=== PATIENT | male | born 1955 | race American Indian/Alaskan Native ===

== ENCOUNTER 2018-11-26 05:45 | Day surgery (SDC) | payer OTHER ==
[2018-11-26] MEDS ORDERED: TYLENOL PO ONE (06:00)
[2018-11-26] MEDS ORDERED: FLEET PR ONE (06:00)
[2018-11-26] MEDS ORDERED: NEURONTIN PO SCH (06:00)
[2018-11-26] MEDS ORDERED: LACTATED RINGERS 1,000 ML IV SCH (06:00)
[2018-11-26] MEDS ORDERED: ANCEF/STERILE WATER 2 GM/20 ML 2 GM/20 ML SYRINGE IV NR (06:00)
[2018-11-26] MEDS ORDERED: MARCAINE 0.25% INFILTRATI ONE (06:54)
[2018-11-26] MEDS ORDERED: XYLOCAINE 1%/ EPI 1:100,000 INFILTRATI ONE (06:54)
--- NOTE | 2018-11-26 06:58 | Short Stay Summary ---
Short Stay Documentation Date of service: 11/26/18 - History H&P: obtained from office - Allergies and Medications Current Medications: Allergies No Known Allergies Allergy (Verified 11/25/18 12:05) Home Medications Medication Instructions Recorded Confirmed Last Taken Type No Known Home Medications [No 11/25/18 11/25/18 Unknown History Reported Home Medications] Active Medications Celecoxib (Celebrex) 200 mg PO PREOP NR Stop: 11/26/18 23:00 Last Admin: 11/26/18 06:20 Dose: 200 mg Documented by: Gabapentin (Neurontin) 900 mg PO PREOP DALLIN Last Admin: 11/26/18 06:22 Dose: 900 mg Documented by: Lactated Ringer's (Lactated Ringers) 1,000 mls @ 75 mls/hr IV DIRECT DALLIN Last Admin: 11/26/18 06:24 Dose: 75 mls/hr Documented by: Cefazolin Sodium (Ancef/Sterile Water 2 Gm/20 Ml) 2 gm in 20 mls @ 80 mls/hr IV PREOP NR; Protocol Stop: 11/26/18 18:00 - Physical exam General appearance: no acute distress HEENT: Atraumatic Lungs: Normal air movement Neurological: Normal speech - Brief post op/procedure progress note Date of procedure: 11/26/18 (dictation:[id number]) Pre-op diagnosis: anorectal fistulae; left buttock chronic wound Post-op diagnosis: same Procedure: EUA removal of setons x 2 I&D with debridement of left buttock wound Left Pudendal nerve block IVF 1150 EBL min Anesthesia: GETA Findings: chronic, noninfected anorectal tracts chronic left buttock wound that did not extend to anal canal Surgeon: SKY ALBARRAN Estimated blood loss: minimal Pathology: none Condition: stable - Hospital course Hospital course: uneventful - Disposition Condition at discharge: Stable Disposition: DC-01 TO HOME OR SELFCARE Short Stay Discharge Plan Diet: regular Wound: open to air, keep clean and dry Special Instructions: no heavy lifting Additional Instructions: Post Operative Instructions No driving until cleared by surgeon. May shower tomorrow. Pat dry the wound or wounds. After surgery, start with a light diet. Consider having a liquid diet first. If you do well, you can advance to a regular diet as you feel comfortable. Do Sitz baths after every bowel movement. Sit in tub of warm water for 10-15min. Use the Sitz baths at least 3 times a day. You can do more if you like. Alternate the use of ibuprofen and Tylenol for the first 2 days. I want you to take these on a scheduled basis. Take 600 mg of ibuprofen every 6 hours. Take 500 mg of Tylenol every 6 hours. You should alternate these 2 medicines. In other words, beginning with the ibuprofen. After 3 hours, take the Tylenol. Keep alternating the 2 drugs every 3 hours. Do this on a scheduled basis for the first 2 days. After that, you can take them as needed. It is very important that you use the prescription pain medicine only for very severe pain. DO NOT TAKE THE PRESCRIPTION MEDICATION BEFORE YOU TRY USING THE IBUPROFEN AND TYLENOL. We will call you in a couple of days to see how youre doing. If you have any questions or concerns, always feel free to call the clinic at any time. SEEK CARE IMMEDIATELY ( by calling 911 ) For Chest pain or trouble breathing all of a sudden. This could be a sign of a blood clot in your lungs or an allergic reaction . DO NOT DRINK ALCOHOL, MAKE LEGAL DECISIONS, COOK OR OPERATE HEAVY MACHINERY FOR 24 HOURS . A responsible adult should remain with you today. Rest for the remainder of the day Follow up with: [facility] [Primary Care Provider] - 7 Days KSY ALBARRAN MD [Staff Physician] - 14 Days Prescriptions: oxyCODONE /ACETAMINOPHEN [Percocet 5/325 mg] 1 tab PO Q6HR PRN #40 tablet PRN Reason: Pain , Severe (7-10)
[2018-11-26] MEDS ORDERED: DIPRIVAN 10 MG/ML IV ONE (07:07)
[2018-11-26] MEDS ORDERED: XYLOCAINE MPF 2% ONE (07:07)
[2018-11-26] MEDS ORDERED: SUBLIMAZE ONE (07:07)
[2018-11-26] MEDS ORDERED: ZEMURON IV ONE (07:07)
--- NOTE | 2018-11-26 07:09 | Anesthesia Day of Surgery ---
Anesthesia Day of Surgery - Day of Surgery Patient Examined: Yes Patient H&P Reviewed: Yes Patient is NPO: Yes
--- NOTE | 2018-11-26 07:10 | Anesthesia Consultation ---
Anesthesia Consult and Med Hx Date of service: 11/26/18 - Airway Anesthetic Teeth Evaluation: Poor, Chipped ROM Head & Neck: Adequate Mental/Hyoid Distance: Adequate Mallampati Class: Class II Intubation Access Assessment: Good - Pre-Operative Health Status ASA Pre-Surgery Classification: ASA2 Proposed Anesthetic Plan: General - Pulmonary Hx Smoking: Yes (FOR 10 YRS ON/OFF; QUIT 2017; [facility]) - Central Nervous System Hx Psychiatric Problems: No - Endocrine Hx Liver Disease: Yes (Hepatitis B and C) - Other Systems Hx Alcohol Use: Yes Hx Substance Use: Yes (MARIJUANA)
[2018-11-26] MEDS ORDERED: ZOFRAN IV PRN (07:12)
[2018-11-26] MEDS ORDERED: SUBLIMAZE IV PRN (07:12)
[2018-11-26] MEDS ORDERED: MARCAINE 0.5% INFILTRATI ONE ×3 (08:01→08:10)
[2018-11-26] MEDS ORDERED: NACL 0.9% IR ONE (08:10)
[2018-11-26] MEDS ORDERED: QUELICIN ONE (08:12)
[2018-11-26] MEDS ORDERED: ROBINUL ONE (08:19)
[2018-11-26] MEDS ORDERED: ZOFRAN ONE (08:19)
[2018-11-26] MEDS ORDERED: BLOXIVERZ ONE (08:19)
[2018-11-26] MEDS ORDERED: PROVENTIL IH ONE (09:06)
[2018-11-26] MEDS ORDERED: PROVENTIL IH SCH (09:30)
[2018-11-26 10:45] VITALS: BP 126/88
--- NOTE | 2018-11-26 17:31 | Post Anesthesia Evaluation ---
- Post Anesthesia Evaluation Patient Participated: Yes Airway Patent: Yes Stable Respiratory Function: Yes Nausea/Vomiting: No Temp > 96.8F: Yes Pain Manageable: Yes Adequeate Hydration: Yes Anesthesia Complications: No Block Receding Appropriately: Not Applicable Patient on Ventilator: No
--- NOTE | 2018-11-27 22:41 | Operative Report ---
PREOPERATIVE DIAGNOSES: 1. History of anorectal fistulae. 2. Left buttock chronic wound. POSTOPERATIVE DIAGNOSES: 1. History of anorectal fistulae. 2. Left buttock chronic wound. PROCEDURES: 1. Exam under anesthesia. 2. Removal of two Setons. 3. Incision, drainage and debridement of left buttock chronic wound. 4. Left pudendal nerve block. ATTENDING PHYSICIAN: Roz Du MD ANESTHESIA: General. ESTIMATED BLOOD LOSS: Minimal. FLUIDS: 1150 mL. FINDINGS: The patient had only [address] The patient thought that there was a third at the 12 o'clock position. It looked very carefully and did not see it. Part of the Seton was lying in that area, so that perhaps was his sensation. The chronic wound, I think partially closed tract from the anorectum. The distal portion was still open and had chronic inflammatory tissue. No other findings were seen. SPECIMENS: None. COMPLICATIONS: None. DISPOSITION: Stable, transferred to Recovery. INDICATIONS: This is a 63-year-old male who approximately 8-9 years ago had Setons placed for anorectal fistulae. However, he was not able to follow up with his surgeon at the [place] and ultimately nothing done with these Setons. He now presents for evaluation and management. The patient was assessed to be in need for exam under anesthesia to get a better overall assessment of the anatomy and what has been done. Procedure, risks and benefits were explained to the patient. Risks include but are not limited to infection, bleeding, pain, injury to surrounding structures, possible need for further procedures in the future. The patient understood and consented. OPERATIVE NOTE: The patient was brought to the operating room and placed on the table in supine position. After adequate general anesthesia was established, the patient was placed in the prone jackknife position. We made sure that all the pressure points were padded. We made sure the genitals were lying in the appropriate position. The buttocks were taped laterally to expose the anus. A sterile prep and drape was performed. The SCDs were placed and antibiotics have been given. Timeout was called. I began by assessing the chronic wound. I probed with a lacrimal probe. It was heading towards the anorectum but did not go all the way. It stopped about half way to the anorectum. I think the proximal portion may have already scarred down, but the distal portion was left open to develop chronic inflammatory tissue and that explains his chronic drainage. This area was away from the general vicinity where I would do a pudendal block, so I went ahead and performed a pudendal block with 0.5% Marcaine. I identified the ischial tuberosity and spine. Using my finger as a guide, I aimed the needle towards the tuberosity/spine region. I aspirated as I went. There was no blood return. I injected 10 mL of local. I then turned my attention to the anal exam. Anoscope was inserted. I did a full evaluation. The patient did have some mild to moderate hemorrhoids circumferentially, but no other problems were noted. There was no purulent drainage coming from either of the tracts where the Seton was located. I saw no inflammatory tissue. No erythema. No induration. The tract had pretty much closed down around the Seton. The Seton seemed to be fairly superficial at this point. There was not much skin left between the Seton and the surface. I considered perhaps just tightening the Seton but I was not sure, so many years out whether it would still be beneficial, as there is no drainage, as there were no signs of any chronic inflammation or infection. I elected to just excise both of them and I explained this to the afterwards. As for the chronic wound, I probed it as mentioned with the lacrimal probe in the direction of the residual tract I opened the skin. This too seemed to be very superficial. I did not feel I was at risk to go deep into the sphincter, so I slowly incised the skin, taking care to carefully watch it, in case I did see any muscle fibers; however, there were none. I completely opened up the tract. There was chronic inflammatory tissue, which I used a curette to completely remove. Hemostasis was achieved with electrocautery and then I packed it with Surgicel. Surgifoam was covered with lubricant and then inserted into the anus to provide additional compression to that area. The skin was cleaned and dried. ABD and mesh underwear were placed. The patient tolerated the procedure well. There were no complications. All counts were correct at the end of the case. JOB# [id number] KASANDRA/SANDRA CERNA
== END 2018-11-26 10:25 | disposition home or self-care (01) ==
LOC: OR 05:45
PROVIDERS: ATTEND Surgery
DX: S31.829A Unspecified open wound of left buttock, initial encounter (principal); K60.5 Anorectal fistula; Z79.899 Other long term (current) drug therapy; Z87.891 Personal history of nicotine dependence; Z72.89 Other problems related to lifestyle; Z98.890 Other specified postprocedural states; X58.XXXA Exposure to other specified factors, initial encounter; Y93.89 Activity, other specified; Y92.89 Other specified places as the place of occurrence of the external cause; Y99.8 Other external cause status
CPT/HCPCS: 11042; 46030; 64430; 88300; J0330; J0690; J2405; J2704; J2710; J3010; J7120; 88304

== ENCOUNTER 2021-07-25 12:26 | Emergency (ER) | payer MEDICARE, OTHER ==
--- NOTE | 2021-07-25 13:52 | Event Note ---
ED Screening Note ED Screening Note: CO DIFFUSE ABD PAIN AND BLACK STOOL AND PAIN L FOOT (NEEDS EVAL IN ROOM) DAILY DRINKER [facility] DENIES [facility] RECTAL FISTULA SURGERY BROKE FOOT - RIGHT 2.5 M AGO L FOOT FX 3 W AGO [facility] DENIES DAILY MEDS POOR INFORMANT This initial assessment/diagnostic orders/clinical plan/treatment(s) is/are subject to change based on patients health status, clinical progression and re- assessment by fellow clinical providers in the ED. Further treatment and workup at subsequent clinical providers discretion. Patient/guardian urged not to elope from the ED as their condition may be serious if not clinically assessed and managed. Initial orders include: GIB W/U
[2021-07-25] MEDS ORDERED: SODIUM CHLORIDE 0.9% 1000 ML 1,000 ML IV ONE (14:18)
[2021-07-25] MEDS ORDERED: MORPHINE 4 MG/1 ML INJ IV ONE (14:18)
[2021-07-25] MEDS ORDERED: PANTOPRAZOLE 40 MG INJ IV ONE (14:18)
[2021-07-25] MEDS ORDERED: ONDANSETRON 4 MG/2 ML INJ IV ONE (14:18)
--- NOTE | 2021-07-25 14:22 | Emergency Department Report ---
ED Abdominal Pain HPI - General Chief Complaint: Abdominal Pain Stated Complaint: STOMACH PAIN Time Seen by Provider: 07/25/21 13:49 Source: patient - History of Present Illness Initial Comments: Patient is 65 years old male with history of diabetes, chronic alcohol abuse. Patient presented to the ER complaining of epigastric abdominal pain, radiated to his back. Patient stated that pain started 7 days ago. Patient stated the pain is sharp and associated with nausea vomiting and diarrhea. Patient denied any fever or chills. Patient stated that he drink beers daily. MD Complaint: abdominal pain -: days(s) (7) Location: epigastric Radiation: back Severity: moderate Severity scale (0 -10): 6 Quality: sharp Consistency: constant Associated Symptoms: nausea, vomiting, diarrhea - Related Data Previous Rx's Medication Instructions Recorded Last Taken Type oxyCODONE /ACETAMINOPHEN [Percocet 1 tab PO Q6HR PRN #40 tablet 11/26/18 Unknown Rx 5/325 mg] Allergies Allergy/AdvReac Type Severity Reaction Status Date / Time No Known Allergies Allergy Verified 11/25/18 12:05 ED Review of Systems ROS: Stated complaint: STOMACH PAIN Other details as noted in HPI Comment: All other systems reviewed and negative Constitutional: denies: chills, fever Respiratory: denies: cough, shortness of breath, SOB with exertion, SOB at rest Cardiovascular: denies: chest pain Gastrointestinal: abdominal pain, nausea, vomiting, diarrhea. denies: constipation, hematemesis, melena, hematochezia Musculoskeletal: denies: back pain Neurological: denies: headache, weakness, numbness, paresthesias, confusion ED Past Medical Hx - Past Medical History Hx Liver Disease: Yes (Hepatitis B and C) Hx HIV: No - Social History Smoking Status: Former Smoker - Medications Home Medications: Home Medications Medication Instructions Recorded Confirmed Last Taken Type oxyCODONE /ACETAMINOPHEN [Percocet 1 tab PO Q6HR PRN #40 tablet 11/26/18 Unknown Rx 5/325 mg] ED Physical Exam - General General appearance: alert, in no apparent distress - Head Head exam: Present: atraumatic, normocephalic, normal inspection - Eye Eye exam: Present: normal appearance, PERRL - ENT ENT exam: Present: normal exam, normal orophraynx, mucous membranes dry - Neck Neck exam: Present: normal inspection, full ROM. Absent: tenderness, meningismus - Respiratory Respiratory exam: Present: normal lung sounds bilaterally - Cardiovascular Cardiovascular Exam: Present: regular rate, normal rhythm, normal heart sounds - GI/Abdominal GI/Abdominal exam: Present: soft, tenderness, normal bowel sounds. Absent: distended, guarding, rebound, rigid, organomegaly, mass, bruit, pulsatile mass, hernia - Extremities Exam Extremities exam: Present: normal inspection, full ROM, normal capillary refill. Absent: tenderness - Back Exam Back exam: Present: normal inspection, full ROM. Absent: CVA tenderness (R), CVA tenderness (L) - Neurological Exam Neurological exam: Present: alert, oriented X3, CN II-XII intact, normal gait, reflexes normal. Absent: motor sensory deficit - Psychiatric Psychiatric exam: Present: normal mood - Skin Skin exam: Present: warm, intact, normal color ED Medical Decision Making - Lab Data Result diagrams: 07/25/21 14:25 07/25/21 14:25 - Radiology Data Radiology results: report reviewed - Medical Decision Making Patient is 65 years old male with history of diabetes, chronic alcohol abuse. Patient presented to the ER complaining of epigastric abdominal pain, radiated to his back. Patient stated that pain started 7 days ago. Patient stated the pain is sharp and associated with nausea vomiting and diarrhea. Patient denied any fever or chills. Patient stated that he drink beers daily. Patient received morphine, Zofran and Protonix. Patient stated that he is feeling much better. Labs reviewed and is unremarkable except for slightly elevated lipase level. CT abdomen and pelvis with IV contrast is unremarkable for acute finding. Patient symptoms most likely related to alcoholic gastritis however patient strongly advised to follow-up with his primary doctor for further management. Patient counseled about alcohol abuse. Patient advised to return to the ER if he develop any new symptoms. Critical care attestation.: If time is entered above; I have spent that time in minutes in the direct care of this critically ill patient, excluding procedure time. ED Disposition Clinical Impression: Acute abdominal pain, Alcoholic gastritis Disposition: HOME / SELF CARE / HOMELESS Is pt being admited?: No Condition: Stable Instructions: Gastritis, Adult, Abdominal Pain, Adult, Acute Pancreatitis, [id number] [facility]errals: [facility] [Other] - 3-5 Days
[2021-07-25 14:49] LABS: Basophils % (Auto) 0.3 % (0.0-1.8); Eosinophils # (Auto) 0.2 K/mm3 (0.0-0.4); Eosinophils % (Auto) 2.6 % (0.0-4.3); Hematocrit 40.2 % (35.5-45.6); Hemoglobin 13.8 gm/dl (11.8-15.2); Lymphocytes # (Auto) 2.3 K/mm3 (1.2-5.4); Mean Corpuscular HGB Conc 34 % (32-34); Mean Corpuscular Volume 109 fl (84-94); Monocytes # (Auto) 0.6 K/mm3 (0.0-0.8); Monocytes % (Auto) 8.5 % (0.0-7.3); Platelet Count 108 K/mm3 (140-440); Red Blood Count 3.67 M/mm3 (3.65-5.03)
[2021-07-25 15:00] LABS: INR 1.16 (0.87-1.13)
[2021-07-25 15:01] LABS: Alanine Aminotransferase 101 units/L (7-56); Albumin 3.8 g/dL (3.9-5); Bilirubin,Direct 0.4 mg/dL (0-0.2); Blood Urea Nitrogen 9 mg/dL (9-20); Calcium 8.3 mg/dL (8.4-10.2); Hemolysis Index 34
[2021-07-25 15:09] LABS: BUN/Creatinine Ratio 13
[2021-07-25 18:31] VITALS: BP 149/89
[2021-07-25 22:18] LABS: Mucus,Urine FEW /HPF; RBC,Urine < 1.0 /HPF (0.0-6.0)
[2021-07-25 22:47] LABS: Amphetamine Screen,Urine PRESUMPTIVE NEGATIVE; Benzodiazepines Screen,Urine PRESUMPTIVE NEGATIVE; Cannabinoid Screen,Urine PRESUMPTIVE POSITIVE; Cocaine Screen,Urine PRESUMPTIVE NEGATIVE; Methadone Screen,Urine PRESUMPTIVE NEGATIVE; Opiate Screen,Urine PRESUMPTIVE NEGATIVE
[2021-07-25 23:01] LABS: Color,Urine Yellow (Yellow)
[2021-07-25 23:02] LABS: Bilirubin,Urine Negative (Negative); Blood,Urine Negative (Negative)
--- NOTE | 2021-07-25 23:53 | Cat Scan Report ---
CT ABDOMEN AND PELVIS WITH CONTRAST INDICATION / CLINICAL INFORMATION: abdominal pain. TECHNIQUE: Axial CT images were obtained through the abdomen and pelvis after 100 cc of Omnipaque [address] scans at this location are performed using CT dose reduction for ALARA by means of automated exposure control. COMPARISON: None available. FINDINGS: LOWER CHEST: No significant abnormality. AORTA / ARTERIES: No significant abnormality. IVC / VEINS: No significant abnormality. LYMPH NODES: No significant adenopathy. COLON: No significant abnormality. APPENDIX: No significant abnormality. STOMACH / SMALL BOWEL: No significant abnormality. PERITONEUM: No free fluid. No free air. No fluid collection. LIVER: Decreased attenuation of the liver suggesting hepatic steatosis. GALLBLADDER: No significant abnormality. BILE DUCTS: No significant abnormality. PANCREAS: No significant abnormality. SPLEEN: No significant abnormality. ADRENALS: No significant abnormality. RIGHT KIDNEY / URETER: Subcentimeter hypoattenuating lesion likely representing renal cysts. No hydro nephrosis. LEFT KIDNEY / URETER: Centimeter hypoattenuating lesions likely representing renal cysts. No hydronep hrosis. URINARY BLADDER: No significant abnormality. REPRODUCTIVE ORGANS: No significant abnormality. SKELETAL SYSTEM: Scattered degeneration. ADDITIONAL FINDINGS: None. IMPRESSION: 1. No CT findings to explain symptomatology. 2. Other findings as above Signer Name: Edwin Olson DO Signed: 07/25/2021 5:41 PM Workstation Name: [id number]
== END 2021-07-25 18:32 | disposition home or self-care (01) ==
LOC: ED 12:26
DX: R10.9 Unspecified abdominal pain (principal); K29.20 Alcoholic gastritis without bleeding; Z87.891 Personal history of nicotine dependence; Z79.899 Other long term (current) drug therapy
CPT/HCPCS: 36415; 74177; 80048; 80076; 80307; 81001; 82140; 82150; 83690; 85025; 85610; 96361; 96374; 96375; 99284; C9113; J2270; J2405; J7030; Q9967; 80320; Q0162; G0480

== ENCOUNTER 2021-10-20 11:05 | Emergency (ER) | payer OTHER ==
[2021-10-20] MEDS ORDERED: ALUM-MAG HYDROXIDE-SIMETHICONE 200-200-20MG/5ML ORAL LIQD 30 ML PO ONE (15:00)
[2021-10-20] MEDS ORDERED: FAMOTIDINE 20 MG TAB PO ONE (15:01)
[2021-10-20] MEDS ORDERED: LIDOCAINE VISCOUS 2% 15 ML ORAL LIQD PO ONE (15:02)
--- NOTE | 2021-10-20 15:40 | Emergency Department Report ---
ED Abdominal Pain HPI - General Chief Complaint: Abdominal Pain Stated Complaint: PAIN/STOMACH/BACK Source: patient Mode of arrival: Ambulatory Limitations: No Limitations - History of Present Illness Initial Comments: 66-year-old male presents to the ED complaining of abdominal pain after eating some spaghetti x1 day ago. Patient has a history of GERD, current taking ppantoprazole daily. Patient had a EGD done at the [place] all October 13, 2021 and was told to avoid spicy food. Patient also drinks alcohol daily. patient was instructed [facility] for [facility] but did not understand his discharge instruction. Patient is aware of food that will call his GERD to flareup as he stated that he should not have eaten the spaghetti last night and lay down. Patient states that he will [facility] the [facility] tomorrow but pain came to the ED for something for pain. Patient states that pain is a current 10 out of 10. Patient is pointing toward the epigastric area and states the pain is a current 10 out of 10. Patient denies any chest pain ,shortness of breath ,nausea or vomiting. Patient is alert and oriented x3. No acute distress noted .No ill appearance noted. Onset/Timin -: days(s) Location: epigastric Radiation: none Severity scale (0 -10): 10 Consistency: intermittent Improves With: nothing Worsens With: nothing - Related Data Previous Rx's Medication Instructions Recorded Last Taken Type oxyCODONE /ACETAMINOPHEN [Percocet 1 tab PO Q6HR PRN #40 tablet 11/26/18 Unknown Rx 5/325 mg] Esomeprazole Magnesium [NexIUM] 40 mg PO QDAY #30 capsule. 07/25/21 Unknown Rx Ondansetron [Zofran Odt] 4 mg PO Q8HR PRN #14 tab.jose luis 07/25/21 Unknown Rx Sucralfate [Carafate] 1 gm PO ACHS #120 tablet 07/25/21 Unknown Rx traMADoL [Ultram] 50 mg PO Q6HR PRN #14 tablet 07/25/21 Unknown Rx Allergies Allergy/AdvReac Type Severity Reaction Status Date / Time No Known Allergies Allergy Verified 11/25/18 12:05 ED Review of Systems ROS: Stated complaint: PAIN/STOMACH/BACK Other details as noted in HPI Constitutional: denies: chills, fever Eyes: denies: eye pain, eye discharge, vision change ENT: denies: ear pain, throat pain Respiratory: denies: cough, shortness of breath, wheezing Cardiovascular: denies: chest pain, palpitations Endocrine: no symptoms reported Gastrointestinal: denies: abdominal pain, nausea, diarrhea Genitourinary: denies: urgency, dysuria Musculoskeletal: denies: back pain, joint swelling, arthralgia Skin: denies: rash, lesions Neurological: denies: headache, weakness, paresthesias Psychiatric: denies: anxiety, depression Hematological/Lymphatic: denies: easy bleeding, easy bruising ED Past Medical Hx - Past Medical History Hx Liver Disease: Yes (Hepatitis B and C) Hx HIV: No - Social History Smoking Status: Never Smoker Substance Use Type: None - Medications Home Medications: Home Medications Medication Instructions Recorded Confirmed Last Taken Type oxyCODONE /ACETAMINOPHEN [Percocet 1 tab PO Q6HR PRN #40 tablet 11/26/18 Unk nown Rx 5/325 mg] Esomeprazole Magnesium [NexIUM] 40 mg PO QDAY #30 capsule.dr 07/25/21 Unknown Rx Ondansetron [Zofran Odt] 4 mg PO Q8HR PRN #14 tab.rapdis 07/25/21 Unknown Rx Sucralfate [Carafate] 1 gm PO ACHS #120 tablet 07/25/21 Unknown Rx traMADoL [Ultram] 50 mg PO Q6HR PRN #14 tablet 07/25/21 Unknown Rx ED Physical Exam - General Limitations: No Limitations General appearance: alert, in no apparent distress - Head Head exam: Present: atraumatic, normocephalic - Eye Eye exam: Present: normal appearance - ENT ENT exam: Present: mucous membranes moist - Neck Neck exam: Present: normal inspection - Respiratory Respiratory exam: Present: normal lung sounds bilaterally. Absent: respiratory distress - Cardiovascular Cardiovascular Exam: Present: regular rate, normal rhythm. Absent: systolic murmur, diastolic murmur, rubs, gallop - GI/Abdominal GI/Abdominal exam: Present: soft, normal bowel sounds - Rectal Rectal exam: Present: deferred - Extremities Exam Extremities exam: Present: normal inspection - Back Exam Back exam: Present: normal inspection - Neurological Exam Neurological exam: Present: alert, oriented X3 - Psychiatric Psychiatric exam: Present: normal affect, normal mood - Skin Skin exam: Present: warm, dry, intact, normal color. Absent: rash ED Course Vital Signs 10/20/21 10/20/21 12:13 17:05 Temperature 98.2 F 98.2 F Pulse Rate 89 67 Respiratory 20 16 Rate Blood Pressure 128/63 [Right] O2 Sat by Pulse 99 98 Oximetry ED Medical Decision Making - Lab Data Result diagrams: 10/20/21 15:15 10/20/21 15:15 - Medical Decision Making 66-year-old male presents to the ED complaining of abdominal pain after eating some spaghetti x1 day ago. Patient has a history of GERD current taking ppantoprazole daily. Patient had a EGD done at the [place] all October 13, 2021 and was told to avoid spicy food. Patient also drinks alcohol daily. patient was instructed [facility] but did not understand his discharge instruction. Patient is aware of food that will call his GERD to flareup as he stated that he should not have eaten the spaghetti last night and lay down. Patient states that he will [facility] but pain came to the ED for something for pain. Patient states that pain is a current 10 out of 10. Patient is pointing toward the epigastric area and states the pain is a current 10 out of 10. Patient denies any chest pain ,shortness of breath ,nausea or vomiting. Patient is alert and oriented x3. No acute distress noted .No ill appearance noted. Physical examination patient is stating tenderness in all 4 quadrants but pointing toward his epigastric area for pain. Patient given GI cocktail and morphine 4 mg IV. Patient states that he is ready to go home stated pain is 0 out of 10 . Patient lipase 382 patient has chronic pancreatitis. Rechecked the patient is resting quietly quietly and comfortable and feeling better. I discussed the results of diagnostic study, my clinical impression and the plan for further treatment with the patient. Patient agrees with plan and discharge at this present time. All question addressed. I have given the patient instruction regarding a diagnosis ,expectation ,follow- up and return precaution. I explained to the patient that emergent condition may arise and to return to the ED for new worsen and any new persisting condition. I have explained the importance of following up with the primary care physician or referral physician listed below has instructed. The patient verbalized understanding of discharge instruction. Critical care attestation.: If time is entered above; I have spent that time in minutes in the direct care of this critically ill patient, excluding procedure time. ED Disposition Clinical Impression: Chronic pancreatitis Qualifiers: Pancreatitis type: alcohol induced Qualified Code(s): K86.0 - Alcohol-induced chronic pancreatitis GERD (gastroesophageal reflux disease) Qualifiers: Esophagitis presence: esophagitis presence not specified Qualified Code(s): K21.9 - Gastro-esophageal reflux disease without esophagitis Disposition: 01 HOME / SELF CARE / HOMELESS Is pt being admited?: No Does the pt Need Aspirin: No Condition: Stable Instructions: Chronic Pancreatitis, Gastroesophageal Reflux Disease, Adult, [id number] Additional Instructions: Stop drinking alcohol dailyy Chung appointment with the [place] his previous schedule Referrals: PRIMARY CARE, [Primary Care Provider] - 3-5 Days [place] [facility] [Outside] - 3-5 Days Time of Disposition: 17:01
[2021-10-20 15:41] LABS: Hematocrit 39.8 % (35.5-45.6); Hemoglobin 13.7 gm/dl (11.8-15.2); Mean Corpuscular HGB Conc 35 % (32-34); Mean Corpuscular Volume 107 fl (84-94); Platelet Count 129 K/mm3 (140-440); Red Blood Count 3.71 M/mm3 (3.65-5.03); Red Cell Distribution Width 13.4 % (13.2-15.2)
--- NOTE | 2021-10-20 15:48 | XRay Report ---
ABDOMEN 1 VIEW 10/20/2021 2:33 PM INDICATION / CLINICAL INFORMATION: Abdominal Pain. COMPARISON: 07/25/2021 CT. FINDINGS: TUBES / LINES: None. BOWEL GAS PATTERN: No significant abnormality. FREE AIR / EXTRALUMINAL GAS: None. ADDITIONAL FINDINGS: Rightward curvature of the lumbar spine. IMPRESSION: 1. No acute findings. Signer Name: Hair Paulino MD Signed: 10/20/2021 3:43 PM Workstation Name: [id number]
[2021-10-20 15:58] LABS: Alanine Aminotransferase 43 units/L (7-56); Albumin 4.6 g/dL (3.9-5); BUN/Creatinine Ratio 10; Blood Urea Nitrogen 5 mg/dL (9-20); Calcium 9.4 mg/dL (8.4-10.2); Hemolysis Index 18
[2021-10-20] MEDS ORDERED: MORPHINE 4 MG/1 ML INJ IV ONE (16:27)
[2021-10-20] MEDS ORDERED: ONDANSETRON 4 MG/2 ML INJ IV ONE (16:27)
[2021-10-20 17:29] VITALS: BP 129/72
== END 2021-10-20 17:29 | disposition home or self-care (01) ==
LOC: ED 11:05
DX: K85.90 Acute pancreatitis without necrosis or infection, unspecified (principal); K21.9 Gastro-esophageal reflux disease without esophagitis
CPT/HCPCS: 36415; 74018; 80053; 83690; 84484; 85027; 96374; 96375; 99284; J2270; J2405